=== PATIENT | female | born 1990 | race American Indian/Alaskan Native ===

== ENCOUNTER 2018-11-23 20:38 | Emergency (ER) | payer OTHER ==
--- NOTE | 2018-11-23 20:46 | Emergency Department Report ---
Blank Doc - Documentation Documentation: This is a 28-year-old female that presents with left sided pelvic pain with na usea and vomiting x3 days. Denies any urinary symptoms. Denies any vaginal bleeding. Denies any other complaints. This initial assessment diagnostic orders/clinical plan/treatment(s) is/are subject to change based on patient's health status, clinical progression and re- assessment by fellow clinical providers in the ED. Further treatment and workup at subsequent clinical providers discretion. Patient/guardians urged not to elope from ED s their condition may be serious if not clinically assessed and managed. Initial orders include: 1-Patient sent to MAIN for further evaluation and treatment 2- Labs 3- UA
[2018-11-23 21:12] LABS: Basophils % (Auto) 0.4 % (0.0-1.8); Eosinophils % (Auto) 0.3 % (0.0-4.3); Hematocrit 47.7 % (30.3-42.9); Hemoglobin 15.9 gm/dl (10.1-14.3); Lymphocytes # (Auto) 1.2 K/mm3 (1.2-5.4); Lymphocytes % (Auto) 13.5 % (13.4-35.0); Mean Corpuscular HGB Conc 33 % (30-34); Mean Corpuscular Volume 91 fl (79-97); Monocytes # (Auto) 0.3 K/mm3 (0.0-0.8); Platelet Count 271 K/mm3 (140-440); Red Blood Count 5.22 M/mm3 (3.65-5.03); Red Cell Distribution Width 14.3 % (13.2-15.2)
[2018-11-23 21:23] LABS: Bilirubin,Urine NEG (Negative); Blood,Urine NEG (Negative); Color,Urine Yellow (Yellow); Mucus,Urine 1+ /HPF; Urobilinogen,Urine < 2.0 mg/dL (<2.0)
[2018-11-23 21:28] LABS: Alanine Aminotransferase 19 units/L (7-56); Albumin 4.7 g/dL (3.9-5); BUN/Creatinine Ratio 13; Blood Urea Nitrogen 8 mg/dL (7-17); Calcium 9.7 mg/dL (8.4-10.2); Hemolysis Index 13
[2018-11-23] MEDS ORDERED: ZOFRAN ORAL LIQ PO ONE (22:22)
[2018-11-23] MEDS ORDERED: TORADOL IM ONE (22:22)
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
[2018-11-24] MEDS ORDERED: PEPCID PO ONE (00:17)
--- NOTE | 2018-11-24 00:18 | Ultrasound Report ---
FINAL REPORT EXAM: US PELVIS DUPLEX DOPPLER COMP HISTORY: pelvic pain TECHNIQUE: Real-time sonography was performed of the pelvis transabdominally and endovaginally. Imag es are submitted for interpretation. PRIORS: None. FINDINGS: The uterus appears normal measuring 7.1 x 3.5 x 4.5 cm. The endometrial stripe appears normal measuri ng 9 mm. The right ovary appears normal measuring 2.7 x 1.4 x 2.7 cm. The left ovary appears normal measuring 3.4 x 2.0 x 2.5 cm. Color Doppler evaluation of the ovaries shows flow bilaterally. There is no free pelvic fluid. IMPRESSION: Normal pelvic ultrasound.
--- NOTE | 2018-11-24 00:19 | Ultrasound Report ---
FINAL REPORT EXAM: US TRANSVAGINAL HISTORY: pelvic pain TECHNIQUE: Real-time sonography was performed of the pelvis transabdominally and endovaginally. Imag es are submitted for interpretation. PRIORS: None. FINDINGS: The uterus appears normal measuring 7.1 x 3.5 x 4.5 cm. The endometrial stripe appears normal measuri ng 9 mm. The right ovary appears normal measuring 2.7 x 1.4 x 2.7 cm. The left ovary appears normal measuring 3.4 x 2.0 x 2.5 cm. Color Doppler evaluation of the ovaries shows flow bilaterally. There is no free pelvic fluid. IMPRESSION: Normal pelvic ultrasound.
[2018-11-24 00:55] VITALS: BP 103/78
== END 2018-11-24 01:02 | disposition home or self-care (01) ==
LOC: ED 20:38
DX: R10.30 Lower abdominal pain, unspecified (principal); R11.2 Nausea with vomiting, unspecified; F17.200 Nicotine dependence, unspecified, uncomplicated
CPT/HCPCS: 36415; 76830; 80053; 81001; 83690; 84703; 85025; 87210; 87591; 93975; 96372; 99284; J1885; Q0162